=== PATIENT | male | born 1955 | race Caucasian/White ===

== ENCOUNTER 2024-01-20 12:10 | Emergency (ER) | payer OTHER ==
[2024-01-20 13:56] VITALS: TEMP 97.9
[2024-01-20 14:26] LABS: Absolute Neutrophil Ct (ANC) 5.77 x10^3/uL (1.78-5.38); BASOPHIL % 1.1 % (0.2-1.2); Basophil (Absolute #) 0.09 x10^3/uL (0.01-0.08); Eosinophil (Absolute #) 0.16 x10^3/uL (0.04-0.54); Hematocrit 47.5 % (40.1-51.0); Hemoglobin 15.9 g/dL (13.7-17.5); IMMATURE GRAN # 0.04 x10^3u/L (0.001-0.031); IMMATURE GRAN % 0.5 % (0.001-0.429); Lymphocyte (Absolute #) 1.37 x10^3/uL (1.32-3.57); Lymphocytes % 17.4 % (21.8-53.1); Mean Cell Volume 86.2 fL (79.0-92.2); Mean Corpuscular Hemoglobin 28.9 pg (25.7-32.2); Mean Corpuscular Hgb Concent. 33.5 g/dL (32.3-36.5); Mean Platelet Volume 10.6 fL (9.4-12.4); Monocyte (Absolute #) 0.46 x10^3/uL (0.30-0.82); Monocytes % 5.8 % (5.3-12.2); Neutrophil % 73.2 % (34.0-67.9); Platelet Count 236 x10^3/uL (163-337); Red Blood Count 5.51 x10^6/uL (4.63-6.08); Red Cell Distribution Width 12.6 % (11.6-14.4); White Blood Count 7.9 x10^3/uL (4.23-9.07)
--- NOTE | 2024-01-20 14:40 | XRAY ---
Indication: Visual disturbance. Multiple contiguous axial images obtained through the head without contrast. Comparison: None Ventriculosulcal pattern appears symmetric. Left periventricular white matter demonstrates 1.4 x 1.2 x 1.4 cm focus of old infarct anteriorly. No acute intracranial hemorrhage, abnormal extra-axial fluid collection, or mass effect are fourth ventricle is midline without hydrocephalus. Buck-white matter differentiation preserved. Bony calvarium intact. Visualized paranasal sinuses and mastoid air cells are clear. 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 No acute intracranial abnormalities.
[2024-01-20 14:48] LABS: ALBUMIN 4.7 g/dL (3.5-5.0); ANION GAP 18.8 MEQ/L (5-15); BILIRUBIN,TOTAL 0.7 mg/dL (0.2-1.3); Calcium 10.1 mg/dL (8.4-10.2); Creatinine 1 0.97 mg/dL (0.66-1.25); EST GLOMERULAR FILTRATION RATE 86.1 ML/MIN; MAGNESIUM 1.8 mg/dL (1.6-2.3); Potassium 4.3 mmol/L (3.5-5.1); Total Protein 7.2 g/dL (6.3-8.2)
[2024-01-20 15:25] LABS: Appearance Clear (Clear); Bacteria None Seen /HPF (None Seen); Bilirubin Negative (Negative); Blood Small (Negative); Epithelial Cells None Seen /HPF (None Seen); Glucose, Urine Negative (Negative); Hyaline Casts NONE SEEN /LPF (0-2); Ketones Negative (Negative); Leukocyte Esterase Trace (Negative); Nitrite Negative (Negative); Ph 5.5 (4.6-8.0); Protein,Urine Dip Negative (Negative); Specific Gravity 1.015 (1.005-1.030); WBC 0-2 /HPF (0-5)
[2024-01-20 15:52] VITALS: O2SAT 98
--- NOTE | 2024-01-20 16:38 | ERPHSYRPT ---
- History of Present Illness Time Seen by Provider: 01/20/24 13:32 Patient Subjective Stated Complaint: Pt reports after starting new med buspar he started experiencing "lightening bolts that are different colors" in left eye. Psychiatry updated and took pt off buspar so symptoms went away for 5-10 days. However the last couple of days patient started experiencing the "lightening bolts that are different colors" in peripheral vision of right eye. Also states sometimes sunlight will bother him. Pt states he is having a hard time focusing. Recent eye exam Oct 2023 and states was told everything was good. Occasionally feels dizzy but not today. Triage Nursing Assessment: Pt alert and oriented x3. Respirations easy/nonlabored. Skin w/p/d. Ambulated to ED cot without difficulty. Accompanied by spouse. [place] Physician History: 68 years old male with history of hypertension, hyperlipidemia, diabetes mellitus presented in the ER with complaints of visual symptoms off and on for quite some time. Patient reports he was started on BuSpar recently and started seeing bolts of lites initially in the left eye which improved after he stopped BuSpar but again had some waving lights passing across both eyes since last night and some peripheral vision light bolts on the right side today. Patient denies any eye pain or any visual acuity changes. Denies any headache. Numbness tingling or focal weakness. No eye discharge redness or watering. Allergies/Adverse Reactions: lisinopril Adverse Reaction (Verified 01/20/24 13:34) leg cramps Home Medications: ALPRAZolam 0.25 MG [xanAX 0.25 MG] 3 tab PO BID PRN 01/20/24 [History] Amlodipine Besylate 5 mg [Norvasc 5 mg] 10 mg PO HS 01/20/24 [History] Atorvastatin Calcium 20 mg PO DAILY 01/20/24 [History] Cholecalciferol (Vitamin D3) [Vitamin D] 2,000 mg PO DAILY 01/20/24 [History] Cyanocobalamin (Vitamin B-12) [B-12] 1 tab PO DAILY 01/20/24 [History] Gabapentin 1 tab PO HS 01/20/24 [History] Losartan Potassium 1 tab PO HS 01/20/24 [History] Metformin HCl [Metformin ER Osmotic] 1 tab PO BID 01/20/24 [History] Peg 400/Hypromellose/Glycerin [Artificial Tears Drops] 1 drop OP QID PRN 01/20/24 [History] Hx Tetanus, Diphtheria Vaccination/Date Given: (unknown) Hx Influenza Vaccination/Date Given: Yes Hx Pneumococcal Vaccination/Date Given: Yes Travel Risk - International Travel Have you traveled outside of the country in past 3 weeks: No - Emerging Infectious Disease Are you exhibiting symptoms associated with any current EIDs: No - Review of Systems Constitutional: No Symptoms Eyes: Vision Changes Ears, Nose, & Throat: No Symptoms Respiratory: No Symptoms Cardiac: No Symptoms Abdominal/Gastrointestinal: No Symptoms Genitourinary Symptoms: No Symptoms Musculoskeletal: Arthralgias Skin: No Symptoms Neurological: No Symptoms Psychological: Anxiety Hematologic/Lymphatic: No Symptoms Immunological/Allergic: No Symptoms - Past Medical History Pertinent Past Medical History: Yes Cardiac History: High Cholesterol, Hypertension Endocrine Medical History: Diabetes Type II Psycho-Social History: Anxiety - Past Surgical History Past Surgical History: Yes Musculoskeletal: Orthopedic Surgery Other Surgical History: meniscus left - Social History Smoking Status: Former smoker Exposure to second hand smoke: Yes Drug Use: none - Social Determinants of Health Will the patient participate in the screening: Declined to provide - Nursing Vital Signs Nursing Vital Signs: Initial Vital Signs Temperature 97.9 F 01/20/24 13:34 Pulse Rate 105 H 01/20/24 13:34 Respiratory Rate 16 01/20/24 13:34 Blood Pressure 158/86 01/20/24 13:34 O2 Sat by Pulse Oximetry 99 01/20/24 13:34 Pain Scale Pain Intensity 0 - Epifanio Coma Scale Best Eye Response ([place]): (4) open spontaneously Best Verbal Response (Epif[place]io): (5) oriented Best Motor Response (Epifanio): (6) obeys commands [place] Total: 15 - Physical Exam General Appearance: no apparent distress, alert Eye Exam: bilateral eye: normal inspection, PERRL, EOMI Ears, Nose, Throat Exam: normal ENT inspection, TMs normal, pharynx normal, moist mucous membranes Neck Exam: normal inspection, non-tender, supple, full range of motion Respiratory: normal breath sounds, lungs clear Cardiovascular: regular rate/rhythm, normal heart sounds Gastrointestinal: soft, normal bowel sounds, No tenderness Back Exam: normal inspection Extremity Exam: normal inspection, normal range of motion Mental Status: alert, oriented x 3, 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 Exam: normal hearing, normal speech Coordination/Gait: normal finger to nose, normal gait, normal cerebellar function, negative Romberg's sign DTR: bicep (R): 2+, bicep (L): 2+, knee (R): 2+, knee (L): 2+ Skin Exam: normal color SpO2 Interpretation: normal SpO2: 98 O2 Delivery: Room Air - Course EKG Interpreted by Me: RATE (93), Sinus Rhythm, NORMAL AXIS, NORMAL INTERVALS, NORMAL QRS Ordered Tests: Active Orders 24 hr Category Date Time Status Scaling Machine Operator STAT Care 01/20/24 13:52 Active EKG-ER Only STAT Care 01/20/24 13:52 Active IV Insertion STAT Care 01/20/24 13:52 Active NPO (ED) STAT Care 01/20/24 13:[address] ANGIOGRAPHY NECK [CT] Stat Exams 01/20/24 16:37 Ordered CTA HEAD W AND/OR WO CONTRAST [CT] Stat Exams 01/20/24 16:37 Ordered HEAD WITHOUT CONTRAST [CT] Stat Exams 01/20/24 13:52 Completed CBC W DIFF Stat Lab 01/20/24 14:20 Completed CMP Stat Lab 01/20/24 14:20 Completed CULTURE,URINE Stat Lab 01/20/24 14:47 Received ESR [Erythrocyte Sedimentation Rate] Stat Lab 01/20/24 14:20 Completed MAG [MAGNESIUM] Stat Lab 01/20/24 14:20 Completed TROPONIN Q3H Lab 01/20/24 14:20 Completed UA W/RFX UR CULTURE Stat Lab 01/20/24 14:47 Completed Lab/Rad Data: Laboratory Result Diagrams 01/20/24 14:20 01/20/24 14:20 Laboratory Results 01/20/24 01/20/24 01/20/24 Range/Units 14:47 14:20 14:20 WBC (4.23-9.07) x10^3/uL RBC (4.63-6.08) x10^6/uL Hgb (13.7-17.5) g/dL Hct (40.1-51.0) % MCV (79.0-92.2) fL MCH (25.7-32.2) pg MCHC (32.3-36.5) g/dL RDW (11.6-14.4) % Plt Count (163-337) x10^3/uL MPV (9.4-12.4) fL Gran % (34.0-67.9) % Immature Gran % (Auto) (0.001-0.429) % Nucleat RBC Rel Count (0.00-0.2) % Eos # (Auto) (0.04-0.54) x10^3/uL Immature Gran # (Auto) (0.001-0.031) x10^3u/L Absolute Lymphs (auto) (1.32-3.57) x10^3/uL Absolute Monos (auto) (0.30-0.82) x10^3/uL Absolute Nucleated RBC (0.00-0.012) x10^3u/L Lymphocytes % (21.8-53.1) % Monocytes % (5.3-12.2) % Eosinophils % (0.8-7.0) % Basophils % (0.2-1.2) % Absolute Granulocytes (1.78-5.38) x10^3/uL Basophils # (0.01-0.08) x10^3/uL ESR 8 (0-15) mm/hr Sodium (135-145) mmol/L Potassium (3.5-5.1) mmol/L Chloride (98-107) mmol/L Carbon Dioxide (22-30) mmol/L Anion Gap (5-15) MEQ/L BUN (9-20) mg/dL Creatinine (0.66-1.25) mg/dL Estimated GFR ML/MIN Glucose (74-106) mg/dL Calcium (8.4-10.2) mg/dL Magnesium (1.6-2.3) mg/dL Total Bilirubin (0.2-1.3) mg/dL AST (17-59) U/L ALT (0-50) U/L Alkaline Phosphatase (38-126) U/L Troponin I < 0.012 (0.000-0.033) ng/mL Serum Total Protein (6.3-8.2) g/dL Albumin (3.5-5.0) g/dL Urine Color Yellow (Yellow) Urine Appearance Clear (Clear) Urine pH 5.5 (4.6-8.0) Ur Specific [place] 1.015 (1.005-1.030) Urine Protein Negative (Negative) Urine Glucose (UA) Negative (Negative) mg/dL Urine Ketones Negative (Negative) Urine Blood Small A (Negative) Urine Nitrite Negative (Negative) Urine Bilirubin Negative (Negative) Urine Urobilinogen 1.0 A (0.2) mg/dL Ur Leukocyte Esterase Trace A (Negative) U Hyaline Cast (Auto) NONE SEEN (0-2) /LPF Urine Microscopic RBC 3-5 (0-5) /HPF Urine Microscopic WBC 0-2 (0-5) /HPF Ur Epithelial Cells None Seen (None Seen) /HPF Urine Bacteria None Seen (None Seen) /HPF Urine Culture Reflexed YES (NO) 01/20/24 01/20/24 Range/Units 14:20 14:20 WBC 7.9 (4.23-9.07) x10^3/uL RBC 5.51 (4.63-6.08) x10^6/uL Hgb 15.9 (13.7-17.5) g/dL Hct 47.5 (40.1-51.0) % MCV 86.2 (79.0-92.2) fL MCH 28.9 (25.7-32.2) pg MCHC 33.5 (32.3-36.5) g/dL RDW 12.6 (11.6-14.4) % Plt Count 236 (163-337) x10^3/uL MPV 10.6 (9.4-12.4) fL Gran % 73.2 H (34.0-67.9) % Immature Gran % (Auto) 0.5 H (0.001-0.429) % Nucleat RBC Rel Count 0.0 (0.00-0.2) % Eos # (Auto) 0.16 (0.04-0.54) x10^3/uL Immature Gran # (Auto) 0.04 H (0.001-0.031) x10^3u/L Absolute Lymphs (auto) 1.37 (1.32-3.57) x10^3/uL Absolute Monos (auto) 0.46 (0.30-0.82) x10^3/uL Absolute Nucleated RBC 0.00 (0.00-0.012) x10^3u/L Lymphocytes % 17.4 L (21.8-53.1) % Monocytes % 5.8 (5.3-12.2) % Eosinophils % 2.0 (0.8-7.0) % Basophils % 1.1 (0.2-1.2) % Absolute Granulocytes 5.77 H (1.78-5.38) x10^3/uL Basophils # 0.09 H (0.01-0.08) x10^3/uL ESR (0-15) mm/hr Sodium 141 (135-145) mmol/L Potassium 4.3 (3.5-5.1) mmol/L Chloride 103 (98-107) mmol/L Carbon Dioxide 23 (22-30) mmol/L Anion Gap 18.8 H (5-15) MEQ/L BUN 16 (9-20) mg/dL Creatinine 0.97 (0.66-1.25) mg/dL Estimated GFR 86.1 ML/MIN Glucose 102 (74-106) mg/dL Calcium 10.1 (8.4-10.2) mg/dL Magnesium 1.8 (1.6-2.3) mg/dL Total Bilirubin 0.70 (0.2-1.3) mg/dL AST 24 (17-59) U/L ALT 24 (0-50) U/L Alkaline Phosphatase 77 (38-126) U/L Troponin I (0.000-0.033) ng/mL Serum Total Protein 7.2 (6.3-8.2) g/dL Albumin 4.7 (3.5-5.0) g/dL Urine Color (Yellow) Urine Appearance (Clear) Urine pH (4.6-8.0) Ur Specific [place] (1.005-1.030) Urine Protein (Negative) Urine Glucose (UA) (Negative) mg/dL Urine Ketones (Negative) Urine Blood (Negative) Urine Nitrite (Negative) Urine Bilirubin (Negative) Urine Urobilinogen (0.2) mg/dL Ur Leukocyte Esterase (Negative) U Hyaline Cast (Auto) (0-2) /LPF Urine Microscopic RBC (0-5) /HPF Urine Microscopic WBC (0-5) /HPF Ur Epithelial Cells (None Seen) /HPF Urine Bacteria (None Seen) /HPF Urine Culture Reflexed (NO) - Progress Progress: improved Progress Note: 01/20/24 18:03 68 years old is evaluated in the ER for waves of light passing around eyes, bolts of lights on the right peripheral field of vision. Patient does not have any focal neurodeficit otherwise. CT head showed some old infarcts. EKG is sinus rhythm with no acute ischemic changes and negative troponin. Baseline workup including CBC, CMP fairly unremarkable. Chest x-ray negative. I have obtained [facility] neurolog[place] consult who recommended obtaining ESR and also luciana mmended MRI which patient refused as he said he is very claustrophobic. Neurology recommended obtaining CTA head neck and if negative patient can be discharged with outpatient follow-up with neurology and ophthalmology as it seems more of a ophthalmology issue rather than stroke. Patient symptoms are resolved in the meanwhile. Patient went for CTA and was very anxious, I have offered him anxiolytics but he declined and wants to leave and would follow-up with his primary care and ophthalmology outpatient at the [facility]. Patient is not confused or altered and does understand the risk of leaving AMA without full workup would not only delay the diagnosis but could have worsening of condition with permanent disability including but still wants to go home. Patient's was also involved in decision making. Recommended follow-up with his physicians and return for any symptoms of worsening. Patient walked out of the ER after signing AMA paper without any assistance. Discussed with Dr.: Other ([facility] neurology Dr. Michael) Counseled pt/family regarding: lab results, diagnosis, need for follow-up, rad results Medical Desision Making - Discussion of managment Care discussed with:: specialist ([facility] neurology Dr. Michael) Reviewed:: Test results, Need for additional workup Agreed on:: Treatment plan Will see patient: in ED - Diagnostic Testing Diagnostic test were ordered, analyzed, and reviewed by me: Yes Radiological Interpretation: Reviewed by me - Departure Departure Disposition: AMA Clinical Impression: Visual changes Condition: Stable Critical Care Time: No Referrals: [facility],'[facility] [Primary Care Provider] - Follow up/PCP as directed
[2024-01-20 16:54] VITALS: BP 153/75
[2024-01-20 17:09] VITALS: PULSE 81; RESP 16
== END 2024-01-20 18:00 | disposition left against medical advice (07) ==
LOC: ED 12:10
DX: H53.8 Other visual disturbances (principal); E78.5 Hyperlipidemia, unspecified; I10 Essential (primary) hypertension; E11.9 Type 2 diabetes mellitus without complications; Z79.84 Long term (current) use of oral hypoglycemic drugs; Z79.899 Other long term (current) drug therapy
CPT/HCPCS: 36415; 70450; 80053; 81001; 83735; 84484; 85025; 85652; 87086; 93005; 93041; 99284; 99285